=== PATIENT | female | born 1975 | race Two or more races ===

== ENCOUNTER 2025-03-21 10:55 | Day surgery (SDC) | payer OTHER, SELFPAY ==
--- NOTE | 2025-03-20 06:39 | EKG_ITS ---
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
[2025-03-20 09:20] VITALS: BMI 37.8
[2025-03-20 10:13] LABS: Basophils # (Auto) 0.1 Thou/mm3 (0.0-0.2); Basophils % (Auto) 1 % (0-2.5); Eosinophils # (Auto) 0.1 Thou/mm3 (0.0-0.5); Eosinophils % (Auto) 1 % (0-10); Hematocrit 39.2 % (36.0-46.0); Hemoglobin 13.2 g/dL (12.0-16.0); Immature Granulocytes % (Auto) 1 % (0-0); Immature Granulocytes Auto 0.05 Thou/mm3 (0.00-0.00); Lymphocytes # (Auto) 1.9 Thou/mm3 (1.0-4.8); Lymphocytes % (Auto) 25 % (10-50); Mean Corpuscular HGB Conc 33.7 g/dl (31.0-37.0); Mean Corpuscular Hemoglobin 30.5 pg (25.0-35.0); Mean Corpuscular Volume 91 fL (80-100); Monocytes # (Auto) 0.7 Thou/mm3 (0.0-0.8); Monocytes % (Auto) 9 % (0-12); Neutrophils # (Auto) 4.8 Thou/mm3 (1.8-7.7); Neutrophils % (Auto) 64 % (37-80); Nucleated Red Blood Cell % 0 /100 WBC (0); Platelet Count 231 Thou/mm3 (140-440); RDW Standard Deviation 46.2 fL (36.4-46.3); Red Blood Count 4.33 Miln/mm3 (4.00-5.20); White Blood Count 7.6 Thou/mm3 (3.6-11.0)
[2025-03-20 10:16] LABS: Alanine Aminotransferase 24 U/L (10-49); Albumin, Serum 3.9 gm/dL (3.5-5.0); Albumin/Globulin Ratio 1.7 (1.2-2.2); Alkaline Phosphatase 74 U/L (46-116); Anion Gap 7 (7-16); BUN/Creatinine Ratio 27 Ratio (12-20); Bilirubin,Total 0.4 mg/dL (0.3-1.2); Blood Urea Nitrogen 19 mg/dL (9-23); Calcium 8.8 mg/dL (8.3-10.6); Calcium (Corrected) 8.9 mg/dL (8.5-10.1); Carbon Dioxide 28.6 mMol/L (20.0-31.0); Chloride 106 mMol/L (98-107); Creatinine (Component) 0.7 mg/dL (0.6-1.3); Estimated Creatinine Clearance 103.8 mL/min (>60); Globulin 2.3 gm/dL (2.3-3.5); Glucose 85 mg/dL (74-106); Osmolality,Calculated 284 (275-295); Potassium 4.4 mMol/L (3.4-5.1); Sodium 142 mMol/L (136-145); Total Protein 6.2 gm/dL (5.7-8.2); eGFR > 60 See Note
[2025-03-20 11:00] LABS: INR 0.9 (0.9-1.3); Partial Thromboplastin Time 26.6 Seconds (22.0-36.0); Prothrombin Time 10.2 Seconds (9.0-12.2)
[2025-03-21] VITALS (10 sets, daily range): BP systolic 116–137; BP diastolic 70–80; PULSE 70–78; RESP 12–19; TEMP 36.3–36.6; O2SAT 96–100; BMI 37.6
[2025-03-21] MEDS: RINGERS LACTATED 1000 ML 1,000 ML 20 ML IV (11:55)
--- NOTE | 2025-03-21 13:46 | PD.SUROPNT ---
Date of Procedure 03/21/25 Pre Op Diagnosis Symptomatic varicose veins right lower extremity Post Op Diagnosis Same as preop diagnosis Procedure High ligation of the greater saphenous vein right leg Findings Saphenofemoral junction successfully ligated Procedure Description With the patient supine under adequate general esthesia the lower abdomen and right thigh was sterilely prepped and draped. A timeout was performed. Ultrasound was used to localize the location of the saphenofemoral junction and a transverse incision was then made in the groin. Subcutaneous tissues were dissected with the electrocautery and blunt and sharp dissection was used to expose the saphenofemoral junction. All branches were ligated with hemoclips then the saphenofemoral junction was divided proximally and distally with 0 silk ties and divided. When hemostasis was obtained the wound was irrigated and closed with 3-0 Vicryl the subcutaneous tissues and a 4-0 Monocryl subcuticular skin closure. A Dermabond dressing was applied. The patient woke up from anesthesia and was moved to recovery in stable condition Anesthesia other (Laryngeal mask anesthesia) Pathology / specimen None Estimated Blood Loss 15 Condition Stable Disposition PACU Surgeon Rolando Rubin MD Surgical Staff Operation Date: 03/21/25 13:15 Case Staff Anesthesiologist: Emeka Mon RN First Assistant: Joselin South
--- NOTE | 2025-03-21 14:24 | SUR.PHASEI ---
1353: Pt received in [facility] via gurney. Report from Rhett DON and Dr. Argueta. Pt groggy. Easily aroused with eye opening then drifts back to sleep. Resp even, unlabored. VS stable. Dressing to right groin dry, clean, intact. Surgical site without swelling, hematoma. No c/o pain. 1420: Pt resting with no complaints voiced. Resp even, unlabored. VS stable. Dressing to right groin remains dry, clean, intact. No swelling, hematoma to surgical site.
--- NOTE | 2025-03-21 15:28 | SUR.PHASEII ---
1445: Pt more awake, alert. VS stable. Dressing remains dry, clean, intact. Surgical site without swelling, hematoma. Bilateral pedal pulses strong, regular. Denies pain. Sitting up tolerating po fluids with no difficulty swallowing and no n/v. 1515: Pt fully awake, oriented x3. VS stable. Dressing unchanged. Pt dressed and assisted to transport chair. Ambulation steady. Pt and partner stated understanding of discharge instructions via hand i thermal cutter David #[id number]. Pt discharged from [facility] in stable condition.
== END 2025-03-21 15:15 | disposition home or self-care (01) ==
PROVIDERS: Anesthesiology; PCP Internal Medicine; Referring Provider Surgery Vascular Surgery; Visit Provider Surgery Vascular Surgery
PROC: (CPT 37785; principal; 2025-03-21 13:00)
DX: I83.811 Varicose veins of right lower extremity with pain (principal); Z01.810 Encounter for preprocedural cardiovascular examination
CPT/HCPCS: 37700; 36415; 80053; 85025; 85610; 85730; 93005; A4217; A4649; J1100; J2250; J2405; J2704; J2765; J3010; J7120; J7999

== ENCOUNTER 2025-03-22 19:10 | Inpatient (IN) | payer OTHER, MEDICAID, SELFPAY ==
[2025-03-22] VITALS (47 sets, daily range): BP systolic 56–119; BP diastolic 35–85; PULSE 80–106; RESP 15–31; TEMP 37.1–37.7; O2SAT 93–100; BMI 34.2
--- NOTE | 2025-03-22 19:31 | EKG_ITS ---
[facility] Test Date: 2025-03-22 Pat Name: GERDA GLASGOW Department: Room: - Gender: Female Commissioned Police Officer: : 1975 Requested By: ED Temporary Provider Order Number: [id number] Reading MD: ED Temporary Provider Measurements Intervals [place] Rate: 93 P: 20 SD: 152 QRS: 22 QRSD: 74 T: 7 QT: 349 QTc: 435 Interpretive Statements SINUS RHYTHM LOW QRS VOLTAGE IN PRECORDIAL LEADS [QRS DEFLECTION < 1.0 mV IN CHEST LEADS] Compared to ECG 03/20/2025 10:06:19 Sinus bradycardia no longer present /[email or web address]/S0/[id number].pdf
[2025-03-22] MEDS: DEXTROSE 50%-WATER INJ 50 ML SYRINGE IVP ×2 (19:49→21:19)
--- NOTE | 2025-03-22 19:50 | XR_ITS ---
Examination: AP chest single view TECHNIQUE: AP portable semiupright chest single view Date and time: March 22, 2025 at 2031 hours INDICATIONS: Chest pain with hypotension today. FINDINGS: Minor prominence left ventricle. No pneumonia or pulmonary edema. Mild osteopenia IMPRESSION: No pneumonia or pulmonary edema
[2025-03-22 20:23] LABS: Basophils % (Auto) 0 % (0-2.5); Eosinophils % (Auto) 0 % (0-10); Hematocrit 37.3 % (36.0-46.0); Hemoglobin 12.5 g/dL (12.0-16.0); Immature Granulocytes % (Auto) 1 % (0-0); Immature Granulocytes Auto 0.07 Thou/mm3 (0.00-0.00); Lymphocytes # (Auto) 0.7 Thou/mm3 (1.0-4.8); Lymphocytes % (Auto) 5 % (10-50); Mean Corpuscular HGB Conc 33.5 g/dl (31.0-37.0); Mean Corpuscular Hemoglobin 31.1 pg (25.0-35.0); Mean Corpuscular Volume 93 fL (80-100); Monocytes # (Auto) 0.9 Thou/mm3 (0.0-0.8); Monocytes % (Auto) 6 % (0-12); Neutrophils # (Auto) 12.4 Thou/mm3 (1.8-7.7); Neutrophils % (Auto) 88 % (37-80); Nucleated Red Blood Cell % 0 /100 WBC (0); Platelet Count 183 Thou/mm3 (140-440); RDW Standard Deviation 47.7 fL (36.4-46.3); Red Blood Count 4.02 Miln/mm3 (4.00-5.20); White Blood Count 14.1 Thou/mm3 (3.6-11.0)
--- NOTE | 2025-03-22 20:30 | EDNOTE_ITS ---
ED Fever RME/HPI General Chief Complaint: Syncope / Near Syncope Stated Complaint: low blood pressure Time Seen by Provider: 03/22/25 19:44 Arrival date/time: 03/22/25 19:10 RME / HPI RME / HPI Narrative: DR AUSTIN MAIN ED EVALUATION: 49 y/o female with Hx of HTN and varicose veins presents to ED c/o hypotension, nausea, chills, fever, and diarrhea s/p ligation procedure x yesterday. High ligation of the greater saphenous vein of the right leg was performed by Dr. Rubin. Patient denies vomiting or any other associated symptoms or aggravating factors. She currently on Lisinopril and Tramadol. No modifying factors, no radiation, no migration. No pain reported overall. Related Data Home Medications ?Medication ?Instructions ?Recorded ?Confirmed [id number] 250 3 tab PO Q6H PRN pa in 03/23/25 03/23/25 mg-250 mg-65 mg tablet (Excedrin Extra Strength) tramadol 50 mg tablet 50 mg PO Q8H PRN pain 03/23/25 Allergies Allergy/AdvReac Type Severity Reaction Status Date / Time No Known Allergies Allergy Verified 03/21/25 14:14 Review of Systems Review of Systems Systems Reviewed: All systems reviewed, normal except as documented Past Medical History Past Medical History CARDIAC: Positive Cardiac Disorders, Hypertension and Varicose Veins REPRODUCTIVE: Positive Previous Pregnancies (x1) Family History FAMILY HISTORY: Positive Family Cardiac Disorders, Family Cancer and Family Surgery Surgical History SURGICAL: Positive Tubal Ligation and Section Physical Exam Narrative Physical exam: GENERAL APPEARANCE: alert and oriented x 4, well-developed, well-nourished, no acute distress, appears anxious. VITALS: All vitals were reviewed and the pulse ox is % on room air, which is normal according to my interpretation. HEENT: Normocephalic, atraumatic; pupils equal, round, reactive to light; EOMI; mucous membranes pink, moist; oropharynx clear NECK: Supple LUNGS: CTABL; no wheezes, no rales, no rhonchi HEART: Regular rate, regular rhythm; normal S1, S2; no murmurs ABDOMEN: non distended; normal BS; soft, no tenderness, no guarding, no rebound; no masses, no organomegaly, no hernia BACK: no CVA tenderness EXTREMITIES: atraumatic; no edema NEUROLOGIC: awake; alert and oriented x4; cranial nerves II-XII grossly intact; no focal sensory or motor deficits PSYCHIATRIC: appropriate mood and affect SKIN: warm, pale, diaphoretic; no rashes; surgical wound to right groin, not erythematous but weeping possible purulent fluid. Course Course Course Narrative: 2209: Sepsis alert initiated. Orders made at this time are congruent with ED Adult Sepsis Order List. Re-evaluation is to be completed. Sepsis reassessment performed consisting of lab review, vitals, physical exam including auscultation of heart, lungs, and visual evaluation of capillary refills, mucosal membranes and extremities. Patient met SIRS criteria. Reassessment complete, patient is septic. Quality Measures Current suspected stage: severe sepsis Possible source: GI tract/intra-abdominal Blood cultures ordered: yes Antibiotic ordered: Yes Pertinent labs: 03/22/25 03/23/25 20:49 00:30 Lactic Acid 2.5 H mMol/L 1.4 mMol/L (0.4-2.0) (0.4-2.0) Procalcitonin 0.56 H ng/ml (0.0-0.49) sepsis Orders Category Date Time Status COVID-19 Screening Questionnaire NOW Care 03/23/25 00:[address] Screening NOW Care 03/22/25 22:16 Completed Technology Methodology Consultant NOW Care 03/22/25 19:50 Completed EKG (ED ONLY) *Do not use* NOW Care 03/22/25 19:[address] abdomen pelvis w con Stat Exams 03/22/25 22:16 Completed EKG (ED Only) Stat Exams 03/22/25 19:31 Draft US venous doppler LE RT Stat Exams 03/22/25 21:54 Completed XR chest 1V portable Stat Exams 03/22/25 19:50 Completed B-Type Natriuretic Peptide Stat Lab 03/22/25 19:55 Completed Blood Culture (Lab) Stat Lab 03/22/25 20:44 Completed CBC Stat Lab 03/22/25 19:55 Completed Comprehensive Metabolic Panel Stat Lab 03/22/25 19:55 Completed Lactate (Lactic Acid) Stat Lab 03/22/25 20:49 Completed Lactic Acid, 3 HR Stat Lab 03/22/25 23:54 Completed Lipase Stat Lab 03/22/25 19:55 Completed Magnesium Stat Lab 03/22/25 19:55 Completed Partial Thromboplastin Time Stat Lab 03/22/25 19:55 Completed Procalcitonin Stat Lab 03/22/25 20:49 Completed Prothrombin Time with INR Stat Lab 03/22/25 19:55 Completed Troponin I Stat Lab 03/22/25 19:55 Completed UA, C/S IF [Urinalysis, C/S if Indicated] Stat Lab 03/22/25 21:26 Completed Acetaminophen Ivpb [Ofirmev Inj] Med 03/22/25 20:30 Discontinued 1,000 mg in 100 ml IV X1 Dextrose 50% Syr [D50w Syringe Abboject] Med 03/22/25 19:44 Discontinued 50 ml IVP X1 ONE Dextrose 50% Syr [D50w Syringe Abboject] Med 03/22/25 19:44 Discontinued 50 ml IVP X1 ONE Magnesium Sulfate 2 GM Ivpb [Magnesium Sulfate Ivpb] Med 03/22/25 22:20 Discontinued 2 gm in 50 ml IV X1 Ondansetron Inj [Zofran Inj] Med 03/22/25 20:22 Discontinued 4 mg IVP X1 ONE POTASSIUM CHL 10 mEq IVPB [Kcl Ivpb] Med 03/22/25 22:20 Discontinued 10 meq in 100 ml IV Q1H Piper/Tazo 3.375 gm Premix [Zosyn] Med 03/22/25 20:31 Discontinued 3.375 gm in 50 ml IV X1 Sodium Chloride 0.9% 1000 ml [Ns] 1,000 ml Med 03/22/25 22:11 Discontinued IV 999 mls/hr Sodium Chloride 0.9% 1000 ml [Ns] 1,000 ml Med 03/22/25 22:13 Discontinued IV 999 mls/hr fentaNYL INJ [Sublimaze Inj] Med 03/22/25 20:29 Discontinued 50 mcg IVP X1 ONE Vital Signs Vital signs: Vital Signs Temperature 99.9 F 03/22/25 19:31 Pulse Rate 106 H 03/22/25 19:31 Respiratory Rate 22 H 03/22/25 19:31 Blood Pressure 115/56 L 03/22/25 19:31 Pulse Oximetry (%) 97 03/22/25 19:31 Oxygen Delivery Method Room Air 03/22/25 19:31 Fever MDM Narrative MDM Narrative:: Scribe Attestation: I, Erin Johnston, am scribing for and in the presence of Dr. Austin. Provider Notation: Although this document has been carefully reviewed, there may still be some phonetic and other typographical errors.? These errors are purely grammatical due to imperfections in the software program and should not be construed in any way to? compromise the substance of the patient's medical care during this visit. Patient data External records reviewed:: [facility] previous records (No prior ED records available for review.) and EMS form Clinical information provided by:: patient, EMS and family (Niece) Social determinants that could affect healthcare access:: none Patient has the following chronic illnesses:: HTN, Varicose Veins How is presenting disease/condition affected by chronic disease/condition?: exacerbated by Evaluation data The following diagnostics were reviewed and interpreted by me:: lab results, radiology exam(s) and EKG tracing(s) (EKG manual reading, my interpretation: sinus rhythm, rate: 93 bpm, no ST elevation, no acute ischemic changes, interpreted as normal) Lab and/or radiology exams considered but not ordered:: None Interpretation Summary: RADIOLOGY Chest X-Ray: Patient: GERDA GLASGOW. Record#: [id number] Birthdate: 1975 Age/Sex: 49 / F Location: [facility] Attending Dr: Ordering Physician: Catarina Austin MD Date of Service: 03/22/25 Procedure(s): XR chest 1V portable Accession Number(s): [id number] cc: Gagandeep Isaac MD; Lester Smalls MD; Catarina Austin MD~ Examination: AP chest single view TECHNIQUE: AP portable semiupright chest single view Date and time: March 22, 2025 at 2031 hours INDICATIONS: Chest pain with hypotension today. FINDINGS: Minor prominence left ventricle. No pneumonia or pulmonary edema. Mild osteopenia IMPRESSION: No pneumonia or pulmonary edema Dictated By: Gagandeep Isaac MD Signed By: <Electronically signed by Gagandeep Isaac MD in OV> 03/22/252047 Venous Doppler Study: Patient: GERDA GLASGOW [facility]. Record#: [id number] Birthdate: 1975 Age/Sex: 49 / F Location: [facility] Attending Dr: Ordering Physician: Catarina Austin MD Date of Service: 03/22/25 Procedure(s): US venous doppler LE RT Accession Number(s): [id number] cc: Gagandeep Isaac MD; Lester Smalls MD; Catarina Austin MD~ Examination: Duplex scan of the lower extremity, unilateral right Date and time of exam: March 22, 2025, 10:20 PM INDICATIONS: Status post ligation right greater saphenous vein September 2025 with groin and leg pain today Technique: Duplex scan of the extremity veins using B-mode/grayscale imaging and Doppler spectral analysis and color flow Attention is directed to internal echogenicity, compression and augmentation involving these veins, color flow assessment, spectral analysis Findings: Major deep venous structures in the extremity demonstrate normal course and caliber. There is no evidence of deep vein thrombosis. Normal color flow and spectral analysis Thrombus in the superficial greater saphenous vein Impression: Negative for DVT.. Dictated By: Gagandeep Isaac MD Signed By: <Electronically signed by Gagandeep Isaac MD in OV> 03/22/[address] Abdomen/Pelvis: Patient Name: GERDA GLASGOW : 1975 Accession No: [id number] Gender: F Location: Emergency Type Of Study: CT Abdomen & Pelvis w/ Contrast Physician: Catarina Austin Image Count: [id number] Date of Exam: 03/23/2025 12:09 AM ET Requisition Time: 03/23/2025 12:14 AM ET Date of Report: 03/23/2025 01:16 AM ET Clinical History: sepsis Production Superintendent Hydro: Agree / Disagree Change in Patient Care: Yes / No If a significant discrepancy is found between the preliminary and final interpretations of this study, please fax back this form to [phone] with a copy of the official report so that appropriate action may be taken. If you would like to discuss the findings with the radiologist, please call us on [phone], [phone]. CONFIDENTIALITY STATEMENT This transmission is confidential and is intended to be a privileged communication. It is intended only for the use of the addressee. Access to this message by anyone else is unauthorized. If you are not the intended recipient, any disclosure, distribution or any action taken, or omitted to be taken in reliance on it is prohibited and may be unlawful. If you received this communication in error, please notify us so that return of this document to us can be arranged. This report has been generated using [employer] ([email or web address]) Prelim Report CT scan of the abdomen and pelvis with intravenous contrast (axial sections with sagittal and coronal reformats) March 23, 2025 0009 hours Clinical History: sepsis Comparison: No prior study is available for comparison. Findings: There are bilateral dependent pulmonary opacities. The gallbladder is surgically absent. The liver, pancreas, spleen, kidneys and adrenals are unremarkable. A small hiatal hernia is present. There is thickening of the entire colonic wall with mucosal enhancement and associated fat stranding. No evidence of bowel obstruction. The appendix is within normal limits (coronal images [id number]). There is no mesenteric or retroperitoneal adenopathy. The urinary bladder is unremarkable. The uterus is unremarkable. There is a left ovarian follicle.There is no free fluid or free air. The osseous structures are unremarkable. Impression: Findings suggestive of pancolitis. Bilateral dependent pulmonary opacities, which may represent sequelae of aspiration. Medications / Prescriptions Medications or Prescriptions considered but not ordered:: None Medication administrations:: Medication Administration History Discontinued Medications Acetaminophen (Acetaminophen 325 Mg Tablet) 650 mg PO Q6H PRN PRN Reason: PAIN OR FEVER > 101 Stop: 04/22/25 02:07 Last Admin: 03/23/25 16:08 Dose: 650 mg Documented By: Admin: 03/23/25 09:26 Dose: 650 mg Documented By: Admin: 03/23/25 04:24 Dose: 650 mg Documented By: CVL Excedrine Migraine Relief ( Acetaminophen 250 Mg - Aspirin 250 Mg And Caffeine 65 Mg) 0 ea PO Q6H PRN PRN Reason: MIGRAINE Stop: 04/23/25 08:06 Excedrin Migraine Relief ( Acetaminophen 250 Mg - Aspirin 250 Mg And Caffeine 65 Mg) 0 ea PO Q6H PRN PRN Reason: MIGRAINE Stop: 04/23/25 08:06 Last Admin: 03/24/25 09:46 Dose: 3 tablet Documented By: GE Dextrose (Dextrose 50%-Water Inj 50 Ml Syringe) 50 ml IVP X1 ONE Stop: 03/22/25 19:45 Last Admin: 03/22/25 19:49 Dose: 50 ml Documented By: ANITA Dextrose (Dextrose 50%-Water Inj 50 Ml Syringe) 50 ml IVP X1 ONE Stop: 03/22/25 19:45 Last Admin: 03/22/25 21:19 Dose: 50 ml Documented By: JESUS Famotidine (Famotidine Inj 10 Mg/Ml Vial 2 Ml) 20 mg IVP QDAY KAYCE Stop: 04/22/25 08:59 Last Admin: 03/24/25 08:42 Dose: 20 mg Documented By: Admin: 03/23/25 09:18 Dose: 20 mg Documented By: CECILIO Famotidine (Famotidine Inj 10 Mg/Ml Vial 2 Ml) 20 mg IVP BID KAYCE Stop: 04/22/25 08:59 Last Admin: 03/25/25 09:07 Dose: 20 mg Documented By: Admin: 03/24/25 20:34 Dose: 20 mg Documented By: RACHELLE Fentanyl Citrate (Fentanyl Cit Inj 50 Mcg/Ml Amp 2ml) 50 mcg IVP X1 ONE Stop: 03/22/25 20:30 Last Admin: 03/22/25 21:20 Dose: 50 mcg Documented By: JESUS Heparin Sodium (Porcine) (Heparin Sod Inj 5000 Unit/Ml Vial) 5,000 unit SC Q8HR KAYCE Stop: 04/06/25 05:59 Last Admin: 03/25/25 05:14 Dose: 5,000 unit Documented By: AJIT Co-signed By: MICHELLE Admin: 03/24/25 22:12 Dose: 5,000 unit Documented By: AJIT Co-signed By: MICHELLE Admin: 03/24/25 13:47 Dose: 5,000 unit Documented By: GE Co-signed By: TEREZA Admin: 03/24/25 05:16 Dose: 5,000 unit Documented By: MICHELLE Co-signed By: RB Admin: 03/23/25 21:45 Dose: 5,000 unit Documented By: MICHELLE Co-signed By: RB Admin: 03/23/25 13:26 Dose: 5,000 unit Documented By: TANIA Co-signed By: LAY Admin: 03/23/25 06:38 Dose: 5,000 unit Documented By: EE Co-signed By: CB Acetaminophen (Ofirmev Inj) 1,000 mg in 100 mls @ 250 mls/hr IV X1 ONE Stop: 03/22/25 20:53 Last Infusion: 03/22/25 21:48 Dose: Infused Documented By: Admin: 03/22/25 20:58 Dose: 250 mls/hr Documented By: BD Piperacillin/Tazobactam/Dextrose (Zosyn) 3.375 gm in 50 mls @ 100 mls/hr IV X1 ONE Stop: 03/22/25 21:00 Last Infusion: 03/22/25 21:48 Dose: Infused Documented By: Admin: 03/22/25 20:58 Dose: 100 mls/hr Documented By: BD Sodium Chloride (Ns) 1,000 mls @ 999 mls/hr IV .Q1H1M ONE Stop: 03/22/25 23:11 Last Infusion: 03/23/25 00:47 Dose: Infused Documented By: Admin: 03/22/25 22:18 Dose: 999 mls/hr Documented By: EE Sodium Chloride (Ns) 1,000 mls @ 999 mls/hr IV .Q1H1M ONE Stop: 03/22/25 23:13 Last Infusion: 03/22/25 22:18 Dose: Infused Documented By: Admin: 03/22/25 21:00 Dose: 999 mls/hr Documented By: EE Magnesium Sulfate (Magnesium Sulfate Ivpb) 2 gm in 50 mls @ 25 mls/hr IV X1 ONE Stop: 03/23/25 00:19 Last Infusion: 03/23/25 00:47 Dose: Infused Documented By: Admin: 03/22/25 22:34 Dose: 25 mls/hr Documented By: VG Potassium Chloride (Kcl Ivpb) 10 meq in 100 mls @ 100 mls/hr IV Q1H KAYCE Stop: 03/23/25 02:19 Last Infusion: 03/23/25 05:57 Dose: Infused Documented By: Admin: 03/23/25 05:03 Dose: 100 mls/hr Documented By: Infusion: 03/23/25 05:00 Dose: Infused Documented By: Admin: 03/23/25 03:31 Dose: 100 mls/hr Documented By: Infusion: 03/23/25 01:48 Dose: Infused Documented By: Admin: 03/23/25 00:48 Dose: 100 mls/hr Documented By: Infusion: 03/22/25 23:33 Dose: Infused Documented By: Admin: 03/22/25 22:33 Dose: 100 mls/hr Documented By: VG Piperacillin/Tazobactam/Dextrose (Zosyn) 3.375 gm in 50 mls @ 12.5 mls/hr IV Q8HR KAYCE Stop: 03/30/25 05:59 Last Infusion: 03/23/25 10:05 Dose: Infused Documented By: Admin: 03/23/25 06:38 Dose: 12.5 mls/hr Documented By: ANITA Dextrose/Sodium Chloride (D5-Ns) 500 mls @ 150 mls/hr IV .Q3H20M ONE Stop: 03/23/25 05:32 Last Admin: 03/23/25 04:15 Dose: Not Given Documented By: ANITA Non-Admin Reason: Cancelled by Provider Dextrose/Sodium Chloride (D5-Ns) 1,000 mls @ 150 mls/hr IV .Q6H40M ONE Stop: 03/23/25 08:52 Last Infusion: 03/23/25 10:26 Dose: Infused Documented By: Admin: 03/23/25 04:27 Dose: 150 mls/hr Documented By: CVL Lactated Ringer's (Lactated Ringers) 1,000 mls @ 75 mls/hr IV .[id number] ONE Stop: 03/24/25 00:18 Last Admin: 03/23/25 11:07 Dose: 75 mls/hr Documented By: CECILIO Ciprofloxacin/Dextrose (Cipro Ivpb) 400 mg in 200 mls @ 200 mls/hr IV Q12HR KAYCE Stop: 03/30/25 11:04 Last Admin: 03/25/25 09:08 Dose: 200 mls/hr Documented By: Infusion: 03/24/25 21:33 Dose: Infused Documented By: Admin: 03/24/25 20:33 Dose: 200 mls/hr Documented By: Infusion: 03/24/25 09:47 Dose: Infused Documented By: Admin: 03/24/25 08:47 Dose: 200 mls/hr Documented By: Infusion: 03/23/25 21:24 Dose: Infused Documented By: Admin: 03/23/25 20:24 Dose: 200 mls/hr Documented By: Infusion: 03/23/25 13:45 Dose: Infused Documented By: Admin: 03/23/25 12:45 Dose: 200 mls/hr Documented By: TANIA Metronidazole (Flagyl 500 Mg Iv) 500 mg in 100 mls @ 200 mls/hr IV Q8HR KAYCE Stop: 03/30/25 11:05 Last Admin: 03/25/25 05:12 Dose: 200 mls/hr Documented By: Infusion: 03/24/25 22:40 Dose: Infused Documented By: Admin: 03/24/25 22:10 Dose: 200 mls/hr Documented By: Infusion: 03/24/25 14:16 Dose: Infused Documented By: Admin: 03/24/25 13:46 Dose: 200 mls/hr Documented By: Infusion: 03/24/25 05:46 Dose: Infused Documented By: Admin: 03/24/25 05:16 Dose: 200 mls/hr Documented By: Infusion: 03/23/25 22:10 Dose: Infused Documented By: Admin: 03/23/25 21:40 Dose: 200 mls/hr Documented By: Infusion: 03/23/25 13:15 Dose: Infused Documented By: Admin: 03/23/25 12:45 Dose: 200 mls/hr Documented By: TANIA Ibuprofen (Ibuprofen Tab 400 Mg Tablet) 800 mg PO X1 ONE Stop: 03/23/25 20:23 Last Admin: 03/23/25 20:39 Dose: 800 mg Documented By: MICHELLE Lactobacillus Rhamnosus (Lactobacillus Rhamnosus 1 Cap) 1 cap PO BID KAYCE Stop: 04/22/25 20:59 Last Admin: 03/25/25 09:07 Dose: 1 cap Documented By: Admin: 03/24/25 20:33 Dose: 1 cap Documented By: Admin: 03/24/25 08:41 Dose: 1 cap Documented By: Admin: 03/23/25 20:24 Dose: 1 cap Documented By: MICHELLE Lisinopril (Lisinopril 20 Mg Tablet) 10 mg PO QDAY KAYCE Stop: 04/24/25 08:59 Last Admin: 03/25/25 09:05 Dose: 10 mg Documented By: RAFFY Lisinopril (Lisinopril 2.5 Mg Tablet) 10 mg PO QDAY KAYCE Stop: 04/24/25 08:59 Ondansetron HCl (Ondansetron Inj 2 Mg/Ml Inj 2 Ml) 4 mg IVP X1 ONE Stop: 03/22/25 20:23 Last Admin: 03/22/25 21:04 Dose: 4 mg Documented By: BD Ondansetron HCl (Ondansetron Inj 2 Mg/Ml Inj 2 Ml) 4 mg IV Q6H PRN; Protocol PRN Reason: NAUSEA OR VOMITING Stop: 04/22/25 02:07 Last Admin: 03/23/25 09:26 Dose: 4 mg Documented By: CECILIO Potassium Chloride (Potassium Chloride 20 Meq Tabcr) 40 meq PO X1 ONE Stop: 03/25/25 08:17 Last Admin: 03/25/25 09:07 Dose: 40 meq Documented By: RAFFY Sennosides (Senna Tablet) 2 tab PO BID PRN; Protocol PRN Reason: CONSTIPATION Stop: 04/22/25 02:07 See above if any Consultations Consultation(s) initiated? (list below): Yes Consultation #1 (Physician, Specialty, Details): Discussed with Dr. Ceja for admission. Reviewed the patient?s HPI, PMHx, lab and/or radiology results. Discussed treatment plan. Will accept patient for admission. Time: 00:11 Diagnosis Fever Differential Diagnosis: cellulitis, fever of unknown origin, community acquired pneumonia, pyelonephritis, viral infection, sepsis and influenza Most likely diagnosis given after review of the tests above:: Severe Sepsis, Colitis, Hypoglycemia, Hypotension Admission Indicated Admission indicated?: indicated Explain why admission is indicated or not indicated:: Severe Sepsis, Colitis, Hypoglycemia, Hypotension Admission Request Was there a request for admission?: Yes Admission Attestation Admission request attestation: Discussed case with [] from Hospitalist service regarding admission. Discussed patients ED course, exam findings, labs, and radiology results. The Hospitalist [agrees,declines] to accept the patient for admission. Disposition Plan Disposition Plan: Admit Critical Care Time Critical Care Time Critical Care Time: Yes Total Critical Care Time (min.): 45 Attestation: The high probability of sudden, clinically significant deterioration in the patient?s condition required the highest level of my preparedness to intervene urgently. The services I provided to this patient were to treat and/or prevent clinically significant deterioration. Services included the following: chart data review, reviewing nursing notes and/or old charts, documentation time, it infrastructure consultant collaboration regarding findings and treatment options, medication orders and management, direct patient care, vital sign assessments and ordering, inte rpreting and reviewing diagnostic studies and lab tests. Aggregate critical care time includes only time during which I was engaged in work directly related to the patient?s care, as described above, whether at bedside or elsewhere in the Emergency Department. It did not include time spent performing other reported procedures or the services of residents, students, nurses or physician assistants. Discharge Plan Plan Patient Disposition: Admit Acute Care w/in Hospital Patient condition on transfer: Stable Problem List Clinical Impression: Colitis, Hypoglycemia, Severe sepsis, Hypotension
[2025-03-22 20:36] LABS: Partial Thromboplastin Time 25.4 Seconds (22.0-36.0); Prothrombin Time 11.4 Seconds (9.0-12.2)
[2025-03-22 20:46] LABS: Alanine Aminotransferase 16 U/L (10-49); Albumin, Serum 3.1 gm/dL (3.5-5.0); Albumin/Globulin Ratio 2.1 (1.2-2.2); Alkaline Phosphatase 62 U/L (46-116); Anion Gap 13 (7-16); Aspartate Amino Transferase 16 U/L (0-34); BUN/Creatinine Ratio 16 Ratio (12-20); Bilirubin,Total 0.4 mg/dL (0.3-1.2); Blood Urea Nitrogen 18 mg/dL (9-23); Calcium 8.2 mg/dL (8.3-10.6); Calcium (Corrected) 8.9 mg/dL (8.5-10.1); Carbon Dioxide 22.8 mMol/L (20.0-31.0); Chloride 102 mMol/L (98-107); Creatinine (Component) 1.1 mg/dL (0.6-1.3); Estimated Creatinine Clearance 69.9 mL/min (>60); Globulin 1.5 gm/dL (2.3-3.5); Glucose 69 mg/dL (74-106); Lipase 22 U/L (12-53); Magnesium 1.5 mg/dL (1.6-2.6); Osmolality,Calculated 275 (275-295); Potassium 3.4 mMol/L (3.4-5.1); Sodium 138 mMol/L (136-145); Total Protein 4.6 gm/dL (5.7-8.2); Troponin I < 0.020 ng/mL (0.0-0.045); eGFR > 60 See Note
[2025-03-22 20:48] LABS: B-Type Natriuretic Peptide < 20 pg/mL (0-100)
[2025-03-22 20:55] LABS: Lactate (Lactic Acid) 2.5 mMol/L (0.4-2.0)
[2025-03-22] MEDS: PIPER/TAZO 3.375 GM PREMIX 3.375 GM/50 ML BAG IV (20:58)
[2025-03-22] MEDS: ACETAMINOPHEN IVPB 1,000 MG/100 ML VIAL 250 MG IV (20:58)
[2025-03-22] MEDS: SODIUM CHLORIDE 0.9% 1000 ML 1,000 ML 999 ML IV ×2 (21:00→22:18)
[2025-03-22] MEDS: ONDANSETRON INJ 2 MG/ML INJ 2 ML 4 MG IVP (21:04)
[2025-03-22] MEDS: fentaNYL CIT INJ 50 mCg/ML AMP 2ML IVP (21:20)
[2025-03-22 21:30] LABS: Procalcitonin 0.56 ng/ml (0.0-0.49)
[2025-03-22 21:43] LABS: Collection Type, Urine Catheter
[2025-03-22 21:48] LABS: Bilirubin,Urine Negative (Negative); Blood,Urine Trace (Negative); Clarity,Urine Clear (Clear/Hazy); Color,Urine Yellow (Lt Yel-Yel); Culture Indicated,Urine Not Indicated; Glucose, Urine Negative (Negative); Hyaline Casts,Urine < 1 /hpf (0-1); Ketones,Urine Negative (Negative); Leukocyte Esterase,Urine Negative (Negative); Nitrite,Urine Negative (Negative); Protein,Urine 1+ (Neg - Trace); RBC,Urine 10 /hpf (0-3); Specific Gravity,Urine 1.027 (1.001-1.035); Squamous Epithelial Cell,Urine 6 /hpf (0-5); Urobilinogen,Urine Negative mg/dL (0.0-1.0); WBC,Urine 1 /hpf (0-5)
--- NOTE | 2025-03-22 21:54 | XR_ITS ---
Examination: Duplex scan of the lower extremity, unilateral right Date and time of exam: March 22, 2025, 10:20 PM INDICATIONS: Status post ligation right greater saphenous vein September 2025 with groin and leg pain today Technique: Duplex scan of the extremity veins using B-mode/grayscale imaging and Doppler spectral analysis and color flow Attention is directed to internal echogenicity, compression and augmentation involving these veins, color flow assessment, spectral analysis Findings: Major deep venous structures in the extremity demonstrate normal course and caliber. There is no evidence of deep vein thrombosis. Normal color flow and spectral analysis Thrombus in the superficial greater saphenous vein Impression: Negative for DVT..
--- NOTE | 2025-03-22 22:16 | XR_ITS ---
Examination: CT abdomen with intravenous contrast CT pelvis with intravenous contrast 2-D coronal reconstructions 2-D sagittal reconstructions Date and time of exam:March 23, 2025 0009 hours INDICATIONS: Abdominal pain, sepsis alert today. CTDI: vol (mGy) 26 DLP: (mGycm) 1593 Technique: Multiple axial sections of the abdomen and pelvis have been obtained. 64 slice high-resolution scanner used. 3 mm axial sections have been obtained, post intravenous injection 60 cc Isovue 370 2-D sagittal, coronal reconstructions obtained. Low dose protocols were performed. One or more of the following dose reduction techniques were used; automated exposure control, adjustment of the mA and/or KV according to patient size, use of iterative reconstruction technique. Findings: Bibasilar pneumonia, consider aspiration pneumonia. Hepatomegaly 22 cm No focal liver or splenic lesions Absent gallbladder No pancreatic or adrenal mass. No renal or ureteral calculi, no hydronephrosis The entire colon shows wall thickening and hyperemia Small lymph nodes in the right lower mesentery Normal appendix Anteverted uterus, small amount of right follicular cyst, bladder intact Advanced disc narrowing L2-L3 IMPRESSION: Bibasilar pneumonia, consider aspiration pneumonia Diffuse significant nonspecific colitis pattern
[2025-03-22] MEDS: POTASSIUM CHL 10 mEq IVPB 10 MEQ/100 ML BAG 100 MEQ IV (22:33)
[2025-03-22] MEDS: Magnesium Sulfate 2 GM Ivpb 2 GM/50 ML BAG IV (22:34)
[2025-03-22 23:54] LABS: Reflex Lactate? Y
[2025-03-23] VITALS (29 sets, daily range): BP systolic 87–127; BP diastolic 47–74; PULSE 87–106; RESP 16–90; TEMP 36.3–37.6; O2SAT 93–99; BMI 34.2
[2025-03-23] MEDS: POTASSIUM CHL 10 mEq IVPB 10 MEQ/100 ML BAG 100 MEQ IV ×3 (00:48→05:03)
[2025-03-23 00:50] LABS: Lactic Acid, 3 HR 1.4 mMol/L (0.4-2.0)
--- NOTE | 2025-03-23 01:17 | PRELIM_ITS ---
CT scan of the abdomen and pelvis with intravenous contrast (axial sections with sagittal and coronal reformats) March 23, 2025 0009 hours Clinical History: sepsis Comparison: No prior study is available for comparison. Findings: There are bilateral dependent pulmonary opacities. The gallbladder is surgically absent. The liver, pancreas, spleen, kidneys and adrenals are unremarkable. A small hiatal hernia is present. There is thickening of the entire colonic wall with mucosal enhancement and associated fat stranding. No evidence of bowel obstruction. The appendix is within normal limits (coronal images [id number]). There is no mesenteric or retroperitoneal adenopathy. The urinary bladder is unremarkable. The uterus is unremarkable. There is a left ovarian follicle.There is no free fluid or free air. The osseous structures are unremarkable. Impression: Findings suggestive of pancolitis. Bilateral dependent pulmonary opacities, which may represent sequelae of aspiration. Report Electronically Signed By: Lukas Pascal 03/23/2025 1:16:37 AM [EST]
--- NOTE | 2025-03-23 01:40 | PD.RESHP ---
Documentation for date of: 03/23/25 HPI History of Present Illness History of present illness: Patient is a 49-year-old female with a past medical history of hypertension recent surgery for varicose veins yesterday, who came to the ER after having fever, chills and profuse watery diarrhea since yesterday. Also complained of abdominal pain, stated she has profuse watery diarrhea, also feeling nauseated and is not able to eat or drink anything. She was feeling drained, family took her to the nearby fire station where they checked vitals blood pressure was noted to be in the 60s systolic, they brought her to the emergency room for further evaluation and workup. Also noticed low blood glucose, patient has no history of diabetes or history of hypoglycemia, denied any chest pain or shortness of breath or syncope., But did endorse presyncopal symptoms. Patient denied any recent antibiotic use. In the ER, blood pressure was noted to be 94/52, sepsis alert was called, CBC shows leukocytosis, WBC 14.1, hemoglobin 12.5, platelets 183, sodium 138, potassium 3.4, BUN 18, creatinine 1.1, blood glucose 69, initial lactic acid 2.5, after receiving IV fluid boluses improved to 1.4. Received IV Zosyn and fluid boluses in the ER. Patient will be admitted to medical floor for further evaluation management. Past medical history: History of hypertension, surgery for varicose veins yesterday. Past surgical history: History of cholecystectomy, , varicose veins surgery Allergies: NKDA Social history: Denies smoking Review of Systems Review of Systems Systems Reviewed: All systems reviewed, normal except as documented Past Medical History Past Medical History NEUROLOGIC: Negative Neurological Disorders or Seizures CARDIAC: Positive Hypertension and Varicose Veins; Negative Cardiac Disorders or Congestive Heart Failure RESPIRATORY: Negative Chronic Obstructive Pulmonary Disease (COPD) or Asthma GASTROINTESTINAL: Negative Gastrointestinal Disorders GENITOURINARY: Negative Genitourinary Disorders or Renal Disease REPRODUCTIVE: Positive Previous Pregnancies (x1) MUSCULOSKELETAL: Negative Musculoskeletal Disorders ENDOCRINE: Negative Endocrine Disorders, Diabetes Mellitus Type 1 or Diabetes Mellitus Type 2 HEMATOLOGIC: Negative Blood Disorders or Sickle Cell Disease OTHER HISTORY: Negative Hospitalization, Autoimmune Disease, Shingles, Blood Transfusions, Blood Transfusion Reaction, Anesthesia Reactions, Clostridium Difficile or Cancer Family History FAMILY HISTORY: Positive Family Cardiac Disorders, Family Cancer and Family Surgery; Negative Family Psychiatric Problems, Family Respiratory Disorders, Family Gastrointestinal Problems or Family Anesthesia Reaction Surgical History SURGICAL: Positive Tubal Ligation and Section Social History SMOKING STATUS: Never smoker Exam Vital Signs Temp Pulse Resp BP Pulse Ox O2 Del Method O2 Flow Rate 99.6 F 88 27 H 94/52 L 96 Nasal Cannula 2 03/23/25 00:45 03/23/25 00:45 03/23/25 00:45 03/23/25 00:45 03/23/25 00:45 03/23/25 00:45 03/23/25 00:45 Narrative Exam General: AOx3, cooperative Skin: Intact, no cyanosis or edema noted. HEENT: Atraumatic/normocephalic, ELIE, neck supple Heart: RRR, S1 and S2 without clicks or murmurs Lungs: Clear on auscultation bilaterally, no difficulty breathing Abdomen: S oft , mildly tender, Bowel sounds present . Vascular: Peripheral pulses palpable Neuro: No focal neurological deficits noted. Results: Labs 03/22/25 19:55 03/22/25 19:55 Labs: Short CBC 03/22/25 Range/Units 19:55 WBC 14.1 H D (3.6-11.0) Thou/mm3 Hgb 12.5 (12.0-16.0) g/dL Hct 37.3 (36.0-46.0) % Plt Count 183 D (140-440) Thou/mm3 BMP 03/22/25 19:55 Sodium 138 Potassium 3.4 D Chloride 102 Carbon Dioxide 22.8 BUN 18 Creatinine 1.1 Glucose 69 L Calcium 8.2 L Cardiac Enzymes 03/22/25 Range/Units 19:55 Troponin I < 0.020 (0.0-0.045) ng/mL Liver Function 03/22/25 Range/Units 19:55 Total Bilirubin 0.4 (0.3-1.2) mg/dL AST 16 (0-34) U/L ALT 16 (10-49) U/L Alkaline Phosphatase 62 (46-116) U/L Albumin 3.1 L D (3.5-5.0) gm/dL Urine 03/22/25 Range/Units 21:26 Urine Color Yellow (Lt Yel-Yel) Urine Clarity Clear (Clear/Hazy) Urine pH 6.0 (5.0-7.0) Ur Specific [place] 1.027 (1.001-1.035) Urine Protein 1+ A (Neg - Trace) Urine Glucose (UA) Negative (Negative) Quality Measures Quality Measures sepsis Current suspected stage: sepsis Possible source: GI tract/intra-abdominal Blood cultures ordered: yes Antibiotic ordered: Yes Medications Home Medications and Allergies Home Medications ?Medication ?Instructions ?Recorded ?Confirmed ?Type lisinopril 10 mg tablet 10 mg PO QDAY 03/20/25 03/20/25 History Allergies Allergy/AdvReac Type Severity Reaction Status Date / Time No Known Allergies Allergy Verified 03/21/25 14:14 Visit Medications Potassium Chloride (Kcl Ivpb) 10 meq in 100 mls @ 100 mls/hr IV Q1H KAYCE Stop: 03/23/25 02:19 Last Admin: 03/23/25 00:48 Dose: 100 mls/hr Discontinued Medications Dextrose (Dextrose 50%-Water Inj 50 Ml Syringe) 50 ml IVP X1 ONE Stop: 03/22/25 19:45 Last Admin: 03/22/25 19:49 Dose: 50 ml Dextrose (Dextrose 50%-Water Inj 50 Ml Syringe) 50 ml IVP X1 ONE Stop: 03/22/25 19:45 Last Admin: 03/22/25 21:19 Dose: 50 ml Fentanyl Citrate (Fentanyl Cit Inj 50 Mcg/Ml Amp 2ml) 50 mcg IVP X1 ONE Stop: 03/22/25 20:30 Last Admin: 03/22/25 21:20 Dose: 50 mcg Acetaminophen (Ofirmev Inj) 1,000 mg in 100 mls @ 250 mls/hr IV X1 ONE Stop: 03/22/25 20:53 Last Infusion: 03/22/25 21:48 Dose: Infused Piperacillin/Tazobactam/Dextrose (Zosyn) 3.375 gm in 50 mls @ 100 mls/hr IV X1 ONE Stop: 03/22/25 21:00 Last Infusion: 03/22/25 21:48 Dose: Infused Sodium Chloride (Ns) 1,000 mls @ 999 mls/hr IV .Q1H1M ONE Stop: 03/22/25 23:11 Last Infusion: 03/23/25 00:47 Dose: Infused Sodium Chloride (Ns) 1,000 mls @ 999 mls/hr IV .Q1H1M ONE Stop: 03/22/25 23:13 Last Infusion: 03/22/25 22:18 Dose: Infused Magnesium Sulfate (Magnesium Sulfate Ivpb) 2 gm in 50 mls @ 25 mls/hr IV X1 ONE Stop: 03/23/25 00:19 Last Infusion: 03/23/25 00:47 Dose: Infused Ondansetron HCl (Ondansetron Inj 2 Mg/Ml Inj 2 Ml) 4 mg IVP X1 ONE Stop: 03/22/25 20:23 Last Admin: 03/22/25 21:04 Dose: 4 mg Assessment & Plan Plan Patient is a 49-year-old female with a past medical history of hypertension recent surgery for varicose veins yesterday, who came to the ER after having fever, chills and profuse watery diarrhea since yesterday. Also complained of abdominal pain, stated she has profuse watery diarrhea, also feeling nauseated and is not able to eat or drink anything. She was feeling drained, family took her to the nearby fire station where they checked vitals blood pressure was noted to be in the 60s systolic, they brought her to the emergency room for further evaluation and workup. Also noticed low blood glucose, patient has no history of diabetes or history of hypoglycemia, denied any chest pain or shortness of breath or syncope., But did endorse presyncopal symptoms. Patient denied any recent antibiotic use. In the ER, blood pressure was noted to be 94/52, sepsis alert was called, CBC shows leukocytosis, WBC 14.1, hemoglobin 12.5, platelets 183, sodium 138, potassium 3.4, BUN 18, creatinine 1.1, blood glucose 69, initial lactic acid 2.5, after receiving IV fluid boluses improved to 1.4. Received IV Zosyn and fluid boluses in the ER. Patient will be admitted to medical floor for further evaluation management. Past medical history: History of hypertension, surgery for varicose veins yesterday. Past surgical history: History of cholecystectomy, , varicose veins surgery Allergies: NKDA Social history: Denies smoking #Sepsis #Pancolitis #Rule out C. difficile Patient denies any recent antibiotic use, but recent hospitalization and surgery is a risk factor. Also CT scan shows pancolitis on imaging. Lactic acidosis initially improved after IV fluids. ? IV Zosyn every 8 hourly ? Contact precautions, C. difficile PCR to rule out C. difficile. Can remove contact precautions after negative test. ? Stool cultures, stool for WBC ordered ? IV fluid boluses given in ED, continue maintenance fluids. #History of hypertension ? Pending med rec, currently patient is hypotensive holding home medications. # concern for hypoglycemia - iv dextrose NS - Zofran for nausea, encourage PO intake. plan of care discussed with attending dr Kimberly Ceja pgy 2 Attending Provider Attestation/Addendum I reviewed labs, imaging, EKG, home medications and prior available records. Face to face evaluation was performed by me. I have personally examined the patient and discussed assessment and plan with the IM team. I reviewed the resident note and agree with the plan with exceptions as below. Acute diarrhea Acute hypotension Acute gastroenteritis Pancolitis Varicose veins s/p surgery Her acute diarrhea can be infectious versus medication side effect Started IV fluids Started IV Zosyn Monitor electrolytes and replete as needed Send C. difficile colitis test Trend WBC Management of pain as needed
[2025-03-23] MEDS: ACETAMINOPHEN 325 MG TABLET 650 MG PO ×3 (04:24→16:08)
[2025-03-23] MEDS: DEXTROSE 5%-NS 1,000 ML 150 ML IV (04:27)
[2025-03-23 05:46] LABS: Basophils # (Auto) 0.1 Thou/mm3 (0.0-0.2); Basophils % (Auto) 0 % (0-2.5); Eosinophils % (Auto) 0 % (0-10); Hematocrit 36.7 % (36.0-46.0); Hemoglobin 12.7 g/dL (12.0-16.0); Immature Granulocytes % (Auto) 0 % (0-0); Immature Granulocytes Auto 0.05 Thou/mm3 (0.00-0.00); Lymphocytes # (Auto) 0.6 Thou/mm3 (1.0-4.8); Lymphocytes % (Auto) 5 % (10-50); Mean Corpuscular HGB Conc 34.6 g/dl (31.0-37.0); Mean Corpuscular Volume 90 fL (80-100); Monocytes # (Auto) 0.5 Thou/mm3 (0.0-0.8); Monocytes % (Auto) 5 % (0-12); Neutrophils # (Auto) 10.4 Thou/mm3 (1.8-7.7); Neutrophils % (Auto) 90 % (37-80); Nucleated Red Blood Cell % 0 /100 WBC (0); Platelet Count 186 Thou/mm3 (140-440); RDW Standard Deviation 46.1 fL (36.4-46.3); White Blood Count 11.6 Thou/mm3 (3.6-11.0)
[2025-03-23 06:08] LABS: Alanine Aminotransferase 16 U/L (10-49); Alkaline Phosphatase 69 U/L (46-116); Anion Gap 8 (7-16); Aspartate Amino Transferase 14 U/L (0-34); BUN/Creatinine Ratio 20 Ratio (12-20); Bilirubin,Direct 0.2 mg/dL (0.0-0.3); Bilirubin,Total 0.5 mg/dL (0.3-1.2); Blood Urea Nitrogen 16 mg/dL (9-23); Calcium 7.4 mg/dL (8.3-10.6); Carbon Dioxide 22.4 mMol/L (20.0-31.0); Cardiac Risk Estimate 2.3 RATIO (3.7-5.6); Chloride 108 mMol/L (98-107); Cholesterol 119 mg/dL (132-200); Creatinine (Component) 0.8 mg/dL (0.6-1.3); Estimated Creatinine Clearance 96.1 mL/min (>60); Glucose 91 mg/dL (74-106); HDL Cholesterol 52 mg/dL (40-60); INR 1.1 (0.9-1.3); LDL Cholesterol,Calculated 49 mg/dL (0-130); Magnesium 1.8 mg/dL (1.6-2.6); Osmolality,Calculated 276 (275-295); Potassium 4.3 mMol/L (3.4-5.1); Prothrombin Time 11.5 Seconds (9.0-12.2); Sodium 138 mMol/L (136-145); Total Protein 4.8 gm/dL (5.7-8.2); Triglycerides 89 mg/dL (30-150); eGFR > 60 See Note
[2025-03-23] MEDS: HEPARIN SOD INJ 5000 UNIT/ML VIAL SC ×3 (06:38→21:45)
[2025-03-23] MEDS: PIPER/TAZO 3.375 GM PREMIX 3.375 GM/50 ML BAG IV (06:38)
[2025-03-23] MEDS: FAMOTIDINE INJ 10 MG/ML VIAL 2 ML 20 MG IVP (09:18)
[2025-03-23] MEDS: ONDANSETRON INJ 2 MG/ML INJ 2 ML 4 MG IV (09:26)
--- NOTE | 2025-03-23 11:00 | PC.NURSE ---
DR. NUNEZ CANCELLED [facility]. PT HAVING SOME DIARRHEA EPISODES, FLUIDS WERE STOPPED. CALLED DR. NUNEZ IF THEY WANT MAINTENANCE FLUIDS. PENDING ORDERS
[2025-03-23] MEDS: RINGERS LACTATED 1000 ML 1,000 ML 75 ML IV (11:07)
[2025-03-23] MEDS: metroNIDAZOLE/NS 500 MG IVPB 500 MG/100 ML BAG 200 MG IV ×2 (12:45→21:40)
[2025-03-23] MEDS: CIPROFLOXACIN/D5w 400 MG IVPB 400 MG/200 ML BAG 200 MG IV ×2 (12:45→20:24)
[2025-03-23 12:52] LABS: Stool for WBCs 1+ (Negative)
--- NOTE | 2025-03-23 12:53 | PC.NURSE ---
New orders placed for clear liquid diet and blood sugar checks q6hr. Asked MD Dr. Hargrove if wanted to adjust blood sugar checks to ACHS and he stated no keep q6hrs at this time.
[2025-03-23 14:17] LABS: Clostridium Difficile PCR Negative (Negative)
--- NOTE | 2025-03-23 17:08 | ESPR_ITS ---
<Statement entered by Jesse Mann MD - 03/25/25 02:15> I discussed with and supervised the pharmacy intern physician involved in the care of this patient. Patient assessment and plan was discussed with entire medicine team, including my attending. I agree with the assessment and plan as documented by pharmacy intern doctor. Patient care was discussed with my attending physician Dr.Bishwakarma Jesse Mann, PGY-2 Documentation for date of: 03/23/25 Subjective Subjective Interval history: Patient is seen and examined at bedside Still complaining of diarrheal episode which is watery and denies blood or mucus. Denies any febrile episodes Vitals are stable and patient is currently on IV maintenance fluids Encouraged to take plenty of oral fluids Labs with WBC 11.6, sodium 138, potassium 4.3, calcium 7.4, albumin 3 Procalcitonin is 0.56 Pending C. difficile and stool WBC Stopped Zosyn and patient was started on ciprofloxacin and metronidazole. Will continue maintenance fluids for now Exam Vital Signs Temp Pulse Resp BP Pulse Ox O2 Del Method O2 Flow Rate 97.4 F 94 19 110/68 96 Nasal Cannula 1 03/23/25 16:00 03/23/25 16:00 03/23/25 16:00 03/23/25 16:00 03/23/25 16:00 03/23/25 16:03/23/25 16:00 Narrative Exam General: Awake. appears dehydrated HEENT: Normocephalic, atraumatic, mucous membranes moist. Heart: Regular rate and rhythm, no murmurs. Lungs: Clear to auscultation with no wheezing or crackles. Abdomen: Soft, nondistended, nontender, positive bowel sounds. ?No guarding or rebound tenderness. Neurologic: Alert and oriented x3, no gross neurological deficit, and patient able to move all 4 extremities. Extremities: No edema. Skin: No rash or ecchymoses. Objective Labs 03/25/25 04:52 03/25/25 04:52 Labs: Laboratory Results - last 24 hr 03/22/25 03/22/25 03/22/25 19:55 20:49 21:26 WBC 14.1 H D RBC 4.02 Hgb 12.5 Hct 37.3 MCV 93 MCH 31.1 MCHC 33.5 RDW Std Deviation 47.7 H Plt Count 183 D Neut % (Auto) 88 H Lymph % (Auto) 5 L [place] % (Auto) 6 Eos % (Auto) 0 Baso % (Auto) 0 Neut # (Auto) 12.4 H Lymph # (Auto) 0.7 L [place] # (Auto) 0.9 H Eos # (Auto) 0.0 Baso # (Auto) 0.0 Immature Gran # (Auto) 0.07 H Absolute Nucleated RBC 0.00 Immature Gran % 1 H Nucleated RBC % 0 PT 11.4 INR 1.0 APTT 25.4 Sodium 138 Potassium 3.4 D Chloride 102 Carbon Dioxide 22.8 Anion Gap 13 BUN 18 Creatinine 1.1 Estim Creat Clear Calc 69.9 eGFR > 60 BUN/Creatinine Ratio 16 Glucose 69 L Calculated Osmolality 275 Lactic Acid 2.5 H Calcium 8.2 L Corrected Calcium 8.9 Phosphorus Magnesium 1.5 L Total Bilirubin 0.4 Direct Bilirubin AST 16 ALT 16 Alkaline Phosphatase 62 Troponin I < 0.020 B-Natriuretic Peptide < 20 Total Protein 4.6 L Albumin 3.1 L D Globulin 1.5 L Albumin/Globulin Ratio 2.1 Triglycerides Cholesterol LDL Cholesterol, Calc HDL Cholesterol Cholesterol/HDL Ratio Lipase 22 Procalcitonin 0.56 H Ur Collection Type Catheter Urine Color Yellow Urine Clarity Clear Urine pH 6.0 Ur Specific [place] 1.027 Urine Protein 1+ A Urine Glucose (UA) Negative Urine Ketones Negative Urine Blood Trace Urine Nitrite Negative Urine Bilirubin Negative Urine Urobilinogen (Auto) Negative Ur Leukocyte Esterase Negative Urine RBC 10 H Urine WBC 1 Ur Squamous Epith Cells 6 H Urine Bacteria None Hyaline Casts < 1 Ur Culture Indicated? Not Indicated Stool for White Cells Stl C. diff Tox B Gene 03/23/25 03/23/25 03/23/25 00:30 04:30 06:57 WBC 11.6 H RBC 4.10 Hgb 12.7 Hct 36.7 MCV 90 MCH 31.0 MCHC 34.6 RDW Std Deviation 46.1 Plt Count 186 Neut % (Auto) 90 H Lymph % (Auto) 5 L [place] % (Auto) 5 Eos % (Auto) 0 Baso % (Auto) 0 Neut # (Auto) 10.4 H Lymph # (Auto) 0.6 L [place] # (Auto) 0.5 Eos # (Auto) 0.0 Baso # (Auto) 0.1 Immature Gran # (Auto) 0.05 H Absolute Nucleated RBC 0.00 Immature Gran % 0 Nucleated RBC % 0 PT 11.5 INR 1.1 APTT Sodium 138 Potassium 4.3 D Chloride 108 H Carbon Dioxide 22.4 Anion Gap 8 BUN 16 Creatinine 0.8 Estim Creat Clear Calc 96.1 eGFR > 60 BUN/Creatinine Ratio 20 Glucose 91 Calculated Osmolality 276 Lactic Acid 1.4 Calcium 7.4 L Corrected Calcium Phosphorus 3.0 Magnesium 1.8 Total Bilirubin 0.5 Direct Bilirubin 0.2 AST 14 ALT 16 Alkaline Phosphatase 69 Troponin I B-Natriuretic Peptide Total Protein 4.8 L Albumin 3.0 L Globulin Albumin/Globulin Ratio Triglycerides 89 Cholesterol 119 L LDL Cholesterol, Calc 49 HDL Cholesterol 52 Cholesterol/HDL Ratio 2.3 L Lipase Procalcitonin Ur Collection Type Urine Color Urine Clarity Urine pH Ur Specific [place] Urine Protein Urine Glucose (UA) Urine Ketones Urine Blood Urine Nitrite Urine Bilirubin Urine Urobilinogen (Auto) Ur Leukocyte Esterase Urine RBC Urine WBC Ur Squamous Epith Cells Urine Bacteria Hyaline Casts Ur Culture Indicated? Stool for White Cells 1+ A Stl C. diff Tox B Gene 03/23/25 07:00 WBC RBC Hgb Hct MCV MCH MCHC RDW Std Deviation Plt Count Neut % (Auto) Lymph % (Auto) [place] % (Auto) Eos % (Auto) Baso % (Auto) Neut # (Auto) Lymph # (Auto) [place] # (Auto) Eos # (Auto) Baso # (Auto) Immature Gran # (Auto) Absolute Nucleated RBC Immature Gran % Nucleated RBC % PT INR APTT Sodium Potassium Chloride Carbon Dioxide Anion Gap BUN Creatinine Estim Creat Clear Calc eGFR BUN/Creatinine Ratio Glucose Calculated Osmolality Lactic Acid Calcium Corrected Calcium Phosphorus Magnesium Total Bilirubin Direct Bilirubin AST ALT Alkaline Phosphatase Troponin I B-Natriuretic Peptide Total Protein Albumin Globulin Albumin/Globulin Ratio Triglycerides Cholesterol LDL Cholesterol, Calc HDL Cholesterol Cholesterol/HDL Ratio Lipase Procalcitonin Ur Collection Type Urine Color Urine Clarity Urine pH Ur Specific [place] Urine Protein Urine Glucose (UA) Urine Ketones Urine Blood Urine Nitrite Urine Bilirubin Urine Urobilinogen (Auto) Ur Leukocyte Esterase Urine RBC Urine WBC Ur Squamous Epith Cells Urine Bacteria Hyaline Casts Ur Culture Indicated? Stool for White Cells Stl C. diff Tox B Gene Negative Quality Measures Quality Measures sepsis Current suspected stage: ruled out Possible source: GI tract/intra- abdominal Blood cultures ordered: yes Antibiotic ordered: Yes Assessment & Plan Assessment Current Active Medications: Generic Name Dose Route Start Last Admin Trade Name Freq PRN Reason Stop Dose Admin Acetaminophen 650 mg 03/23/25 02:08 03/23/25 16:08 Acetaminophen 325 Mg Tablet PO 04/22/25 02:07 650 mg Q6H PRN Administration PAIN OR FEVER > 101 Famotidine 20 mg 03/23/25 09:00 03/23/25 09:18 Famotidine Inj 10 Mg/Ml Vial 2 Ml IVP 04/22/25 08:59 20 mg QDAY KAYCE Administration Heparin Sodium (Porcine) 5,000 unit 03/23/25 06:00 03/23/25 13:26 Heparin Sod Inj 5000 Unit/Ml Vial SC 04/06/25 05:59 5,000 unit Q8HR KAYCE Administration Lactated Ringer's 1,000 mls @ 75 mls/hr 03/23/25 10:59 03/23/25 11:07 Lactated Ringers IV 03/24/25 00:18 75 mls/hr .[id number] Administration Ciprofloxacin/Dextrose 400 mg in 200 mls @ 200 mls/hr 03/23/25 11:05 03/23/25 12:45 Cipro Ivpb IV 03/30/25 11:04 200 mls/hr Q12HR KAYCE Administration Metronidazole 500 mg in 100 mls @ 200 mls/hr 03/23/25 11:06 03/23/25 12:45 Flagyl 500 Mg Iv IV 03/30/25 11:05 200 mls/hr Q8HR KAYCE Administration Lactobacillus Rhamnosus 1 cap 03/23/25 21:00 Lactobacillus Rhamnosus 1 Cap PO 04/22/25 20:59 BID KAYCE Ondansetron HCl 4 mg 03/23/25 02:08 03/23/25 09:26 Ondansetron Inj 2 Mg/Ml Inj 2 Ml IV 04/22/25 02:07 4 mg Q6H PRN Administration NAUSEA OR VOMITING Protocol Plan Patient is a 49-year-old female with a past medical history of hypertension recent surgery for varicose veins yesterday, who came to the ER after having fever, chills and profuse watery diarrhea since yesterday #Pancolitis #Rule out C. difficile Patient denies any recent antibiotic use, but on omeprazole for [address] scan shows pancolitis on imaging. Lactic acidosis initially improved after IV fluids. ? IV ciprofloxacin 400 Mg every 12th hourly and IV metronidazole 500mg every 8 hourly ? Contact precautions, C. difficile PCR to rule out C. difficile. Can remove contact precautions after negative test. ? Stool cultures, stool for WBC ordered - Started on lactobacillus ? Will continue maintenance fluids. #History of hypertension ? Taking lisinopril 10mg at home. - Currently patient is hypotensive holding home medications. # concern for hypoglycemia - Zofran for nausea, encourage PO intake. - Q6h glucose checks Hospital Maintenance: Dispo: medsurg DVT ppx: Heparin GI ppx: Famotidine Diet: Clear liquid diet, advance as tolerated IV lines: peripheral Code status: Full Patient plan of care was discussed with the attending physician, Dr. Hargrove and senior resident Dr. Mackenzie Humphrey, PGY1 Attending Provider Attestation/Addendum I attest that I was physically present for the evaluation, physical examination, lab and imaging review of the patient with the residents. I discussed the case with the residents and agree with the findings and plans of care as documented above. Jenna Hargrove MD
[2025-03-23] MEDS: LACTOBACILLUS RHAMNOSUS 1 CAP PO (20:24)
[2025-03-23] MEDS: IBUPROFEN TAB 400 MG TABLET 800 MG PO (20:39)
[2025-03-24] VITALS (9 sets, daily range): BP systolic 98–132; BP diastolic 59–76; PULSE 76–98; RESP 15–97; TEMP 36.1–37; O2SAT 93–97
[2025-03-24] MEDS: HEPARIN SOD INJ 5000 UNIT/ML VIAL SC ×3 (05:16→22:12)
[2025-03-24] MEDS: metroNIDAZOLE/NS 500 MG IVPB 500 MG/100 ML BAG 200 MG IV ×3 (05:16→22:10)
[2025-03-24 06:20] LABS: Basophils % (Auto) 1 % (0-2.5); Eosinophils # (Auto) 0.1 Thou/mm3 (0.0-0.5); Eosinophils % (Auto) 2 % (0-10); Hematocrit 36.3 % (36.0-46.0); Hemoglobin 12.4 g/dL (12.0-16.0); Immature Granulocytes % (Auto) 1 % (0-0); Immature Granulocytes Auto 0.04 Thou/mm3 (0.00-0.00); Lymphocytes # (Auto) 0.9 Thou/mm3 (1.0-4.8); Lymphocytes % (Auto) 15 % (10-50); Mean Corpuscular HGB Conc 34.2 g/dl (31.0-37.0); Mean Corpuscular Hemoglobin 30.8 pg (25.0-35.0); Mean Corpuscular Volume 90 fL (80-100); Monocytes # (Auto) 0.5 Thou/mm3 (0.0-0.8); Monocytes % (Auto) 8 % (0-12); Neutrophils # (Auto) 4.4 Thou/mm3 (1.8-7.7); Neutrophils % (Auto) 74 % (37-80); Nucleated Red Blood Cell % 0 /100 WBC (0); Platelet Count 191 Thou/mm3 (140-440); RDW Standard Deviation 46.6 fL (36.4-46.3); Red Blood Count 4.03 Miln/mm3 (4.00-5.20)
[2025-03-24 06:52] LABS: Anion Gap 10 (7-16); BUN/Creatinine Ratio 10 Ratio (12-20); Blood Urea Nitrogen 7 mg/dL (9-23); Calcium 7.9 mg/dL (8.3-10.6); Carbon Dioxide 22.1 mMol/L (20.0-31.0); Chloride 110 mMol/L (98-107); Creatinine (Component) 0.7 mg/dL (0.6-1.3); Estimated Creatinine Clearance 109.8 mL/min (>60); Glucose 77 mg/dL (74-106); Osmolality,Calculated 280 (275-295); Potassium 3.6 mMol/L (3.4-5.1); Sodium 142 mMol/L (136-145); eGFR > 60 See Note
[2025-03-24] MEDS: LACTOBACILLUS RHAMNOSUS 1 CAP PO ×2 (08:41→20:33)
[2025-03-24] MEDS: FAMOTIDINE INJ 10 MG/ML VIAL 2 ML 20 MG IVP ×2 (08:42→20:34)
[2025-03-24] MEDS: CIPROFLOXACIN/D5w 400 MG IVPB 400 MG/200 ML BAG 200 MG IV ×2 (08:47→20:33)
[2025-03-24] MEDS: ASPIRIN 250 MG PO (09:46)
[2025-03-24] MEDS: ACETAMINOPHEN PO (09:46)
[2025-03-24] MEDS: [UNRECOGNIZED DRUG - OTHER] PO (09:46)
[2025-03-24] MEDS: CAFFEINE 65 MG PO (09:46)
--- NOTE | 2025-03-24 12:27 | ESPR_ITS ---
Documentation for date of: 03/24/25 Subjective Subjective Interval history: Overnight patient had 3 bowl movements that were semi-solid. She states that she is doing much better, abdominal pain has improved, no nausea or vomiting, has increased appetite. C. diff was negative, stool wbc was +1. Admission symptoms most likely secondary to eating tortas. Anticipating discharge within 24 hours. Exam Vital Signs Temp Pulse Resp BP Pulse Ox O2 Del Method O2 Flow Rate 98.6 F 76 17 102/59 L 97 Room Air 2 03/24/25 11:54 03/24/25 11:54 03/24/25 11:54 03/24/25 11:54 03/24/25 11:54 03/24/25 04:00 03/24/25 01:33 Narrative Exam General: Awake. appears in no distress HEENT: Normocephalic, atraumatic, mucous membranes moist. Heart: Regular rate and rhythm, no murmurs. Lungs: Clear to auscultation with no wheezing or crackles. Abdomen: Soft, nondistended, nontender, positive bowel sounds. ?No guarding or rebound tenderness. Neurologic: Alert and oriented x3, no gross neurological deficit, and patient able to move all 4 extremities. Extremities: No edema. Skin: No rash or ecchymoses. Objective Labs 03/25/25 04:52 03/25/25 04:52 Labs: Laboratory Results - last 24 hr 03/23/25 03/23/25 03/24/25 06:57 07:00 04:47 WBC 6.0 D RBC 4.03 Hgb 12.4 Hct 36.3 MCV 90 MCH 30.8 MCHC 34.2 RDW Std Deviation 46.6 H Plt Count 191 Neut % (Auto) 74 Lymph % (Auto) 15 Door % (Auto) 8 Eos % (Auto) 2 Baso % (Auto) 1 Neut # (Auto) 4.4 Lymph # (Auto) 0.9 L Door # (Auto) 0.5 Eos # (Auto) 0.1 Baso # (Auto) 0.0 Immature Gran # (Auto) 0.04 H Absolute Nucleated RBC 0.00 Immature Gran % 1 H Nucleated RBC % 0 Sodium 142 Potassium 3.6 D Chloride 110 H Carbon Dioxide 22.1 Anion Gap 10 BUN 7 L Creatinine 0.7 Estim Creat Clear Calc 109.8 eGFR > 60 BUN/Creatinine Ratio 10 L Glucose 77 Calculated Osmolality 280 Calcium 7.9 L Stool for White Cells 1+ A Stl C. diff Tox B Gene Negative Quality Measures Quality Measures sepsis Current suspected stage: ruled out Possible source: GI tract/intra- abdominal Blood cultures ordered: yes Antibiotic ordered: Yes Assessment & Plan Assessment Current Active Medications: Generic Name Dose Route Start Last Admin Trade Name Freq PRN Reason Stop Dose Admin Acetaminophen 650 mg 03/23/25 02:08 03/23/25 16:08 Acetaminophen 325 Mg Tablet PO 04/22/25 02:07 650 mg Q6H PRN Administration PAIN OR FEVER > 101 Excedrin Migraine 0 ea 03/24/25 08:10 03/24/25 09:46 Relief ( PO 04/23/25 08:06 3 tablet Acetaminophen 250 Mg Q6H PRN Administration - Aspirin 250 Mg And MIGRAINE Caffeine 65 Mg) Famotidine 20 mg 03/23/25 09:00 03/24/25 08:42 Famotidine Inj 10 Mg/Ml Vial 2 Ml IVP 04/22/25 08:59 20 mg QDAY KAYCE Administration Heparin Sodium (Porcine) 5,000 unit 03/23/25 06:00 03/24/25 05:16 Heparin Sod Inj 5000 Unit/Ml Vial SC 04/06/25 05:59 5,000 unit Q8HR KAYCE Administration Ciprofloxacin/Dextrose 400 mg in 200 mls @ 200 mls/hr 03/23/25 11:05 03/24/25 08:47 Cipro Ivpb IV 03/30/25 11:04 200 mls/hr Q12HR KAYCE Administration Metronidazole 500 mg in 100 mls @ 200 mls/hr 03/23/25 11:06 03/24/25 05:16 Flagyl 500 Mg Iv IV 03/30/25 11:05 200 mls/hr Q8HR KAYCE Administration Lactobacillus Rhamnosus 1 cap 03/23/25 21:00 03/24/25 08:41 Lactobacillus Rhamnosus 1 Cap PO 04/22/25 20:59 1 cap BID KAYCE Administration Ondansetron HCl 4 mg 03/23/25 02:08 03/23/25 09:26 Ondansetron Inj 2 Mg/Ml Inj 2 Ml IV 04/22/25 02:07 4 mg Q6H PRN Administration NAUSEA OR VOMITING Protocol Plan Patient is a 49-year-old female with a past medical history of hypertension recent surgery for varicose veins yesterday, who came to the ER after having fever, chills and profuse watery diarrhea since yesterday #Pancolitis #Rule out C. difficile Patient denies any recent antibiotic use, but on omeprazole for [address] scan shows pancolitis on imaging. Lactic acidosis initially improved after IV fluids. C. diff negative, WBC stool +1 Plan: ? IV ciprofloxacin 400 Mg every 12th hourly and IV metronidazole 500mg every 8 hourly ? Contact precautions discontinued as C. diff negative ? Stool cultures, stool for WBC ordered - Started on lactobacillus - Will consider GI consult if no improvement #History of hypertension ? Home med Lisinopril 10 mg restarted # concern for hypoglycemia - Zofran for nausea, encourage PO intake. - Q6h glucose checks Hospital Maintenance: Dispo: Patient admitted for pancolitis requirng IV abx and fluids, anticipating d/c within 24 hours DVT ppx: Heparin GI ppx: Famotidine Diet: Clear liquid diet, advance as tolerated IV lines: peripheral Code status: Full This patient care was discussed with my attending Dr. Maxim Mann MD PGY-2 Disclaimer: Minor errors in glue jointer feeder may be present since this note was dictated by speech recognition software. Attending Provider Attestation/Addendum I have discussed and was present for the essential components of the history, physical examination, diagnosis, and treatment plan with the resident. I agree with the patient's care as documented by the resident and amended herein by me. Tulio Pan DO. Although this document has been carefully reviewed, there may still be some phonetic and other typographical errors. These errors are purely grammatical due to imperfections in the software program and should not be construed in any way to compromise the substance of the patient's medical care during this visit.
[2025-03-25] VITALS: BP 135/68; PULSE 75; RESP 16; TEMP 35.9; O2SAT 96
[2025-03-25 03:53] VITALS: BP 122/69; PULSE 80; RESP 18; TEMP 36.3; O2SAT 96
[2025-03-25] MEDS: metroNIDAZOLE/NS 500 MG IVPB 500 MG/100 ML BAG 200 MG IV (05:12)
[2025-03-25] MEDS: HEPARIN SOD INJ 5000 UNIT/ML VIAL SC (05:14)
[2025-03-25 06:14] LABS: Basophils % (Auto) 1 % (0-2.5); Eosinophils # (Auto) 0.2 Thou/mm3 (0.0-0.5); Eosinophils % (Auto) 3 % (0-10); Hematocrit 37.6 % (36.0-46.0); Hemoglobin 12.8 g/dL (12.0-16.0); Immature Granulocytes % (Auto) 1 % (0-0); Immature Granulocytes Auto 0.06 Thou/mm3 (0.00-0.00); Lymphocytes # (Auto) 1.1 Thou/mm3 (1.0-4.8); Lymphocytes % (Auto) 19 % (10-50); Mean Corpuscular Hemoglobin 30.6 pg (25.0-35.0); Mean Corpuscular Volume 90 fL (80-100); Monocytes # (Auto) 0.5 Thou/mm3 (0.0-0.8); Monocytes % (Auto) 9 % (0-12); Neutrophils # (Auto) 3.9 Thou/mm3 (1.8-7.7); Neutrophils % (Auto) 68 % (37-80); Nucleated Red Blood Cell % 0 /100 WBC (0); Platelet Count 200 Thou/mm3 (140-440); RDW Standard Deviation 45.1 fL (36.4-46.3); Red Blood Count 4.18 Miln/mm3 (4.00-5.20); White Blood Count 5.6 Thou/mm3 (3.6-11.0)
[2025-03-25 06:33] LABS: Anion Gap 12 (7-16); BUN/Creatinine Ratio 9 Ratio (12-20); Blood Urea Nitrogen 6 mg/dL (9-23); Calcium 8.3 mg/dL (8.3-10.6); Carbon Dioxide 22.7 mMol/L (20.0-31.0); Chloride 106 mMol/L (98-107); Creatinine (Component) 0.7 mg/dL (0.6-1.3); Estimated Creatinine Clearance 109.8 mL/min (>60); Glucose 86 mg/dL (74-106); Osmolality,Calculated 277 (275-295); Potassium 3.4 mMol/L (3.4-5.1); Sodium 141 mMol/L (136-145); eGFR > 60 See Note
[2025-03-25 08:00] VITALS: BP 116/76; PULSE 79; RESP 16; TEMP 37.1; O2SAT 95
[2025-03-25 09:05] VITALS: BP 116/76; PULSE 79
[2025-03-25] MEDS: Lisinopril 20 MG TABLET 10 MG PO (09:05)
[2025-03-25] MEDS: POTASSIUM CHLORIDE 20 mEq TABCR 40 MEQ PO (09:07)
[2025-03-25] MEDS: FAMOTIDINE INJ 10 MG/ML VIAL 2 ML 20 MG IVP (09:07)
[2025-03-25] MEDS: LACTOBACILLUS RHAMNOSUS 1 CAP PO (09:07)
[2025-03-25] MEDS: CIPROFLOXACIN/D5w 400 MG IVPB 400 MG/200 ML BAG 200 MG IV (09:08)
--- NOTE | 2025-03-25 11:32 | PC.SS ---
update: Patient already has d/c orders. D/c home. No further d/c needs.
[2025-03-25 12:00] VITALS: BP 115/63; PULSE 87; RESP 16; TEMP 36.4; O2SAT 96
--- NOTE | 2025-03-25 14:00 | ESDS_ITS ---
Planned Discharge Date 03/25/25 DS: Providers Provider Date of admission: 03/23/25 02:08 Primary care physician: Lester Smalls MD Admitting Provider: Rolando Harris MD Attending Provider on Admission: Rolando Harris MD Attending Provider on DC: Tr Humphrey MD Discharging Provider: Tr Humphrey MD DS: Diagnosis Problem List Completed Was Problem List Reviewed/Reconciled?: Yes Hospital Course Hospital Course Hospital course: A 49-year-old female with a past medical history of hypertension recent surgery for varicose veins yesterday, who came to the ER after having fever, chills and profuse watery diarrhea since 1day and admitted for Acute Gastroenteritis Hospital course: In the ER, blood pressure was noted to be 94/52, sepsis alert was called, CBC showed leukocytosis, WBC 14.1, hemoglobin 12.5, platelets 183, sodium 138, potassium 3.4, BUN 18, creatinine 1.1, blood glucose 69, initial lactic acid 2.5, after receiving IV fluid boluses improved to 1.4. Received IV Zosyn and fluid boluses in the ER. CT scan showed pancolitis on imaging. Patient will be admitted to medical floor for further evaluation management. Stool tested positive for 1+ and tested negative for c diff. Treated with fluids during the hospital stay Patient is discharged to home with the following medications and recommendations -Follow-up with PCP within 1 week of discharge. If you do not have appointment, please follow-[facility] with Dr. Humphrey. Call [phone] to make an appointment. -Recommended to stop lisinopril as blood pressures are within normal limits dur ing the hospital stay and follow up with PCP for blood pressure management -Follow up with PCP for further evaluation of blood in urine -Recommended to take plenty of oral fluids -Recommended to continue rest of the home medications as prescribed -Return to ED if symptoms persist or return #Acute Gastroenteritis, resolved #Pancolitis #History of hypertension Patient plan of care was discussed with the attending physician, Dr. Maixm Humphrey, PGY1 Time Spent with Patient Time attestation: Total time spent providing and/or coordinating discharge services: Time spent: Greater than 30 minutes Exam Vital Signs Temp Pulse Resp BP Pulse Ox O2 Del Method O2 Flow Rate 97.5 F 87 16 115/63 96 Room Air 2 03/25/25 12:00 03/25/25 12:00 03/25/25 12:00 03/25/25 12:00 03/25/25 12:00 03/25/25 03:53 03/24/25 01:33 Narrative Exam General: Awake. HEENT: Normocephalic, atraumatic, mucous membranes moist. Heart: Regular rate and rhythm, no murmurs. Lungs: Clear to auscultation with no wheezing or crackles. Abdomen: Soft, nondistended, nontender, positive bowel sounds. ?No guarding or rebound tenderness. Neurologic: Alert and oriented x3, no gross neurological deficit, and patient able to move all 4 extremities. Extremities: No edema. Skin: No rash or ecchymoses. Discharge Plan Plan Patient Disposition: HOME (Self Care) Patient condition on transfer: Stable Care Plan Goals: -Follow-up with PCP within 1 week of discharge. If you do not have appointment, please follow-up with [facility] with Dr. Humphrey. Call [phone] to make an appointment. -Recommended to stop lisinopril as blood pressures are within normal limits during the hospital stay and follow up with PCP for blood pressure management -Follow up with PCP for further evaluation of blood in urine -Recommended to take plenty of oral fluids -Recommended to continue rest of the home medications as prescribed -Return to ED if symptoms persist or return -Realice margarita elizabeth de seguimiento con iniguez m?dico de cabecera dentro de margarita semana despu?s del erna. Si no tiene elizabeth, por favor, programe margarita elizabeth de seguimiento en el centro cl?rodger acad?elie con joao Humphrey. Llame al [phone] para programar margarita elizabeth. - Se recomienda suspender el lisinopril, ya que la presi?n arterial se encuentra dentro de los l?mites normales ale la hospitalizaci?n, y realizar margarita elizabeth de seguimiento con iniguez m?dico de cabecera para el control de la presi?n arterial. - Realice margarita elizabeth de seguimiento con iniguez m?dico de cabecera para margarita evaluaci?n adicional de aung en la orina. - Se recomienda emerson abundantes l?quidos por v?a oral. - Se recomienda continuar con el melissa de los medicamentos recetados en casa. - Regrese a urgencias si los s?ntomas persisten o reaparecen. Prescriptions/Referrals Prescriptions/Med Rec: Continued tramadol 50 mg tablet 50 mg PO Q8H PRN (Reason: pain) Excedrin Extra Strength 250-250-65 mg tablet 3 tab PO Q6H PRN (Reason: pain) Discontinued lisinopril 10 mg tablet 10 mg PO QDAY Referrals: Lester Curiel MD [Primary Care Provider] - Patient/Caregiver Discharge Instructions Education Materials: How the Colon Works, Blood Pressure Check Steps, ED Gastroenteritis, Noninfectious Print Language: [place] Stand Alone Forms: Dejah Award Info., Patient Portal Info Letter Discharge Order Discharge Orders: Discharge (Routine); Ordered 03/25/25 Ordered By: Tr Humphrey Quality Discharge Quality Measures VTE prophylaxis MD Attestestation MD Attestation I have discussed and was present for the essential components of the discharge history, physical examination, diagnosis, and discharge treatment plan with the resident. I agree with the patient's discharge care as documented by the resident and amended herein by me. Tulio Pan, DO. The patient understood all discharge instructions, all questions were answered satisfactorily. The patient was instructed to return to the Emergency Department is symptoms worsened or persisted. Patient significantly improved on day of discharge, symptoms resolved, original symptoms likely secondary to viral gastroenteritis. All questions answered satisfactorily, patient discharged home. Although this document has been carefully reviewed, there may still be some phonetic and other typographical errors. These errors are purely grammatical due to imperfections in the software program and should not be construed in any way to compromise the substance of the patient's medical care during this visit.
== END 2025-03-25 12:42 | disposition home or self-care (01) | DRG 392 ==
LOC: SERX 03-23 01:20 → SERHOLD 03-23 02:29 → S3SX 03-23 12:32
PROVIDERS: Student in an Organized Health Care Education/Training Program; Admitting Provider Student in an Organized Health Care Education/Training Program; Emergency Provider Emergency Medicine; PCP Internal Medicine; Visit Provider Student in an Organized Health Care Education/Training Program
DX: K52.9 Noninfective gastroenteritis and colitis, unspecified (principal); E87.20 Acidosis, unspecified; I10 Essential (primary) hypertension; I95.9 Hypotension, unspecified; Z90.49 Acquired absence of other specified parts of digestive tract; I83.90 Asymptomatic varicose veins of unspecified lower extremity
CPT/HCPCS: 36415; 71045; 74177; 80048; 80053; 80061; 80076; 81001; 83605; 83690; 83735; 83880; 84100; 84145; 84484; 85025; 85610; 85730; 87015; 87040; 87045; 87046; 87077; 87081; 87205; 87493; 87899; 93005; 93971; 96361; 96365; 96366; 96367; 96374; 96375; 96376; 99291; A4649; J0131; J0744; J1644; J2405; J2543; J3010; J3475; J3480; J3490; J7030; J7042; J7120; Q9967; A9270; J1836